=== PATIENT | male | born 1940 | race African-American/Black ===

== ENCOUNTER → 2018-04-29 | Emergency (ER) | payer OTHER ==
[~2018-04-29] VITALS: Ht 172.7 cm; Wt 78.0 kg
[~2018-04-29] MED LIST: NORVASC2.5 M1; ZYLOPRIM100 M1
== END | disposition left against medical advice (07) ==
LOC: ER 10:48
DX: J44.1 Chronic obstructive pulmonary disease with (acute) exacerbation (principal)

== ENCOUNTER → 2018-05-23 | Outpatient (CLI) | payer OTHER | END | disposition home or self-care (01) | LOC: LAB 11:18 | DX: R04.2 Hemoptysis (principal); Z51.81 Encounter for therapeutic drug level monitoring ==

== ENCOUNTER 2018-06-11 08:57 | Outpatient (CLI) | payer OTHER | END 2018-06-11 09:10 | disposition home or self-care (01) | LOC: TOM 08:57 | DX: R04.2 Hemoptysis (principal) | CPT/HCPCS: 71260; Q9965 ==

== ENCOUNTER 2018-07-27 11:59 | Outpatient (CLI) | payer OTHER | END 2018-07-27 12:07 | disposition home or self-care (01) | LOC: LAB 11:59 | DX: J38.01 Paralysis of vocal cords and larynx, unilateral (principal); Z51.81 Encounter for therapeutic drug level monitoring ==

== ENCOUNTER 2018-07-31 09:07 | Outpatient (CLI) | payer OTHER | END 2018-07-31 09:09 | disposition home or self-care (01) | LOC: TOM 09:07 | DX: J38.01 Paralysis of vocal cords and larynx, unilateral (principal) | CPT/HCPCS: 70492; Q9965 ==

== ENCOUNTER 2018-08-17 07:12 | Outpatient (CLI) | payer OTHER | END 2018-08-17 07:24 | disposition home or self-care (01) | LOC: SONOGRAMA 07:12 → MAMO-SONO 07:15 → SONOGRAMA 07:24 | DX: E04.1 Nontoxic single thyroid nodule (principal) ==

== ENCOUNTER 2018-09-06 03:40 | Emergency (ER) | payer OTHER ==
[~2018-09-06] VITALS: Ht 170.2 cm; Wt 76.2 kg
== END 2018-09-06 13:28 | disposition home or self-care (01) ==
LOC: ER 03:40
DX: J45.998 Other asthma (principal)

== ENCOUNTER 2018-12-20 11:03 | Outpatient (CLI) | payer OTHER | END 2018-12-20 11:49 | disposition home or self-care (01) | LOC: RAD 11:03 | DX: M54.2 Cervicalgia (principal) ==

== ENCOUNTER 2019-09-01 14:43 | Emergency (ER) | payer OTHER ==
[~2019-09-01] VITALS: Ht 165.1 cm; Wt 68.0 kg
[2019-09-01] MEDS ORDERED: TOPROL XL100 M1 (15:15)
[2019-09-01] MEDS ORDERED: AVAPRO300 MG (15:15)
[2019-09-01] MEDS ORDERED: MILLIPRED5 MG (15:16)
== END 2019-09-01 19:11 | disposition home or self-care (01) ==
LOC: ER 14:43
DX: J44.9 Chronic obstructive pulmonary disease, unspecified (principal)

== ENCOUNTER 2020-06-15 08:49 | Emergency (ER) | payer OTHER ==
[~2020-06-15] VITALS: Ht 167.6 cm; Wt 73.5 kg
[~2020-06-15 08:49] MED LIST changes: +AVAPRO300 MG; +MILLIPRED5 MG; +TOPROL XL100 M1
[2020-06-15] MEDS ORDERED: FORTAMET1000 MG (09:01)
[2020-06-15] MEDS ORDERED: HIBICLENS118 ML TOP (09:30)
[2020-06-15] MEDS ORDERED: MUPIROCIN1 G1 TOP (09:30)
[2020-06-15] MEDS ORDERED: DUI500 PO (09:30)
== END 2020-06-15 09:37 | disposition home or self-care (01) ==
LOC: ER 08:49
DX: L73.8 Other specified follicular disorders (principal)

== ENCOUNTER 2020-07-24 07:41 | Outpatient (CLI) | payer OTHER ==
[~2020-07-24 07:41] MED LIST changes: +DUI500 PO; +FORTAMET1000 MG; +HIBICLENS118 ML TOP; +MUPIROCIN1 G1 TOP
== END 2020-07-24 07:51 | disposition home or self-care (01) ==
LOC: RAD 07:41
DX: R05 Cough (principal); R07.89 Other chest pain